=== PATIENT | female | born 1975 | race Caucasian/White ===

== ENCOUNTER 2018-02-02 01:03 | Emergency (ER) | payer OTHER ==
[2018-02-02] MEDS: KETOROLAC 30 MG INJ IM (01:52)
== END 2018-02-02 02:34 | disposition home or self-care (01) ==
LOC: FTE 01:03
DX: M79.601 Pain in right arm (principal); F17.210 Nicotine dependence, cigarettes, uncomplicated
CPT/HCPCS: 96372; 99284-25